=== PATIENT | female | born 1960 | race African-American/Black ===

== ENCOUNTER 2019-04-09 14:12 | Emergency (ER) | payer MEDICAID ==
[~2019-04-09] VITALS: Ht 167.6 cm; Wt 95.0 kg
[2019-04-09] MEDS ORDERED: IBUPROFEN 800MG TABLET PO ONE (15:30)
[2019-04-09 15:42] VITALS: BP 145/92
== END 2019-04-09 15:56 | disposition home or self-care (01) ==
LOC: ER 14:12
DX: M25.562 Pain in left knee (principal); M25.561 Pain in right knee; M54.5 Low back pain; I10 Essential (primary) hypertension; Z96.652 Presence of left artificial knee joint; Z98.890 Other specified postprocedural states; W01.0XXA Fall on same level from slipping, tripping and stumbling without subsequent striking against object, initial encounter; Y93.01 Activity, walking, marching and hiking; Y92.89 Other specified places as the place of occurrence of the external cause; Y99.8 Other external cause status
CPT/HCPCS: 99283